=== PATIENT | male | born 1950 | race African-American/Black ===

== ENCOUNTER → 2017-04-12 | Day surgery (SDC) | payer BC ==
[~2017-04-12] MED LIST: LIDOCAINE HCL 1% 20ML VIAL (Pyxis) INJ ONE; SODIUM BICARBONATE 4% (2.4MEQ) 5ML VIAL IV ONE
== END | disposition home or self-care (01) ==
LOC: RAD 12:06
PROVIDERS: ATTEND Internal Medicine Endocrinology, Diabetes & Metabolism
DX: E07.89 Other specified disorders of thyroid (principal)
CPT/HCPCS: 60100; 76942; 88172; 88173; J3490